=== PATIENT | female | born 1970 | race Caucasian/White ===

== ENCOUNTER 2019-05-24 16:01 | Emergency (ER) | payer SELFPAY, MEDICAID | END 2019-05-24 20:11 | disposition home or self-care (01) | LOC: FTE 16:01 | DX: S62.301A Unspecified fracture of second metacarpal bone, left hand, initial encounter for closed fracture (principal); X58.XXXA Exposure to other specified factors, initial encounter; Y92.89 Other specified places as the place of occurrence of the external cause | CPT/HCPCS: 29125; 73130-LT; 99283-25 ==